=== PATIENT | female | born 1950 ===

== ENCOUNTER 2017-09-28 07:34 | Outpatient (CLI) | payer MEDICARE ==
--- NOTE | 2017-09-28 09:08 | XRay Report ---
Lumbar spine series: Left sciatica. Anterior traction spurs are identified involving predominantly L3 and L4. The vertebral height, alignment, and interspaces are well preserved. The bones are well-mineralized. The apophyseal joints are preserved and aligned. Impressions: Mild spondylosis.
== END 2017-09-28 07:35 | disposition home or self-care (01) ==
LOC: SPVIMAG 07:34
PROVIDERS: ATTEND Internal Medicine
DX: M47.896 Other spondylosis, lumbar region (principal)
CPT/HCPCS: 72110